=== PATIENT | female | born 1950 | race Caucasian/White ===

== ENCOUNTER 2016-12-15 19:06 | Emergency (ER) | payer MEDICARE, OTHER ==
[2016-12-15 19:21] VITALS: RESP 22
[2016-12-15] MEDS ORDERED: LORAZEPAM 2 MG/ML SOL IM ONE (19:23)
[2016-12-15] MEDS ORDERED: LORAZEPAM 2 MG/ML SOL ONE (19:24)
[2016-12-15] MEDS ORDERED: TDAP VACCINE 0.5 ML SUS IM ONE (19:39)
[2016-12-15] MEDS ORDERED: LIDOCAINE 1% W/EPI MPF 10 ML SOL INFIL ONE (19:40)
[2016-12-15] MEDS ORDERED: LIDOCAINE 1% W/EPI MPF 10 ML SOL ONE (19:41)
[2016-12-15] MEDS ORDERED: EPINEPHRINE HCL 0.1 MG/ML SOL IV PRN (20:30)
[2016-12-15] MEDS ORDERED: SODIUM CHLORIDE 0.9% 1000ML 1,000 ML IV ONE (20:35)
[2016-12-15] MEDS ORDERED: METOPROLOL TARTRATE 5 MG/5 ML SOL IV ONE ×2 (20:36→20:39)
[2016-12-15] MEDS ORDERED: ATROPINE 0.1 MG/ML SOL ONE (20:44)
[2016-12-15] MEDS ORDERED: LIDOCAINE HCL 2% (100 MG) CARP ONE (20:44)
[2016-12-15] MEDS ORDERED: ETOMIDATE 2 MG/ML SOL IV ONE ×2 (20:45→20:51)
[2016-12-15] MEDS ORDERED: ROCURONIUM BROMIDE 10 MG/ML SOL IV ONE ×2 (20:45→20:51)
[2016-12-15] MEDS ORDERED: SUCCINYLCHOLINE CHLORIDE 20 MG/ML SOL IV ONE (20:45)
[2016-12-15 21:02] LABS: ALBUMIN 3.4 gm/dl (3.4-5.0); ALT 48 IU/L (14-63); CALCIUM 8.9 mg/dl (8.5-10.1); GLOM FILT RATE 65 mL/min (>60); POTASSIUM 3.6 mMol/L (3.5-5.1); SODIUM 142 mMol/L (136-145)
[2016-12-15 21:03] LABS: BASOPHILS % (AUTO) 1 % (0-3); EOSINOPHILS % (AUTO) 3 % (0-9); HEMATOCRIT 38 % (35-47); MEAN CORPUSCULAR HGB CONC 33.9 gm/dl (32.0-36.0); MEAN CORPUSCULAR VOLUME 93 fL (81-99); MONOCYTES % (AUTO) 9.7 % (0-12); NEUTROPHILS % (AUTO) 27.6 % (37-80)
[2016-12-15] MEDS ORDERED: EPINEPHRINE 1:10,000 PREFILL 0.1 MG/ML SOL ONE (23:30)
[2016-12-16 03:08] VITALS: TEMP 98.6
[2016-12-16 03:39] VITALS: BP 95/47; PULSE 105; O2SAT 79
[2016-12-16] MEDS ORDERED: SODIUM CHLORIDE 0.9% FLUSH 10 ML SOL IV PRN (03:50)
== END 2016-12-15 21:14 | disposition short-term general hospital (02) | DRG 298 ==
LOC: ED 19:06
DX: I46.9 Cardiac arrest, cause unspecified (principal); S01.81XA Laceration without foreign body of other part of head, initial encounter; W01.198A Fall on same level from slipping, tripping and stumbling with subsequent striking against other object, initial encounter
CPT/HCPCS: 36415; 80053; 82550; 83880; 84484; 85025; 85610; 85730; 93005; 96365; 96372; 96374; 96375; 99291; G0168; J0330; J0461; J2001; J2060; L0130; A6402; A6446

== ENCOUNTER 2018-01-27 20:43 | Emergency (ER) | payer OTHER ==
[2018-01-27 20:43] VITALS: O2SAT 79
[2018-01-27 20:58] VITALS: BP 169/126; RESP 20; TEMP 98.6
[2018-01-27] MEDS ORDERED: TDAP VACCINE 0.5 ML SUS IM ONE ×2 (21:18→21:20)
== END 2018-01-27 21:25 | disposition home or self-care (01) | DRG 156 ==
LOC: ED 20:43
DX: S01.311A Laceration without foreign body of right ear, initial encounter (principal)
CPT/HCPCS: 90471; 90715; 99282

== ENCOUNTER 2018-02-05 19:51 | Observation (INO) | payer OTHER ==
[2018-02-05] MEDS ORDERED: LORAZEPAM 0.5 MG TAB ONE (20:15)
[2018-02-05] MEDS ORDERED: DIPHENHYDRAMINE 25 MG CAP ONE (20:16)
[2018-02-05] MEDS ORDERED: LORAZEPAM 0.5 MG TAB PO ONE (20:18)
[2018-02-05] MEDS ORDERED: DIPHENHYDRAMINE 25 MG CAP PO ONE (20:20)
[2018-02-05] MEDS ORDERED: HALOPERIDOL LACTATE 5 MG/ML SOL ONE (21:21)
[2018-02-05] MEDS ORDERED: HALOPERIDOL LACTATE 5 MG/ML SOL IM ONE (21:25)
[2018-02-05 23:27] LABS: BASOPHILS % (AUTO) 1 % (0-3); EOSINOPHILS % (AUTO) 1 % (0-9); HEMATOCRIT 33 % (35-47); HEMOGLOBIN 11.5 gm/dl (12.0-15.5); LYMPHOCYTES % (AUTO) 22.3 % (10-50); MEAN CORPUSCULAR HEMOGLOBIN 31.3 pg (27.0-32.0); MEAN CORPUSCULAR HGB CONC 35.2 gm/dl (32.0-36.0); MEAN CORPUSCULAR VOLUME 89 fL (81-99); MONOCYTES % (AUTO) 6.3 % (0-12); NEUTROPHILS % (AUTO) 69.6 % (37-80)
[2018-02-05 23:43] LABS: ALBUMIN 3.1 gm/dl (3.4-5.0); BILIRUBIN,TOTAL 0.3 mg/dl (0.2-1.0); CALCIUM 9.2 mg/dl (8.5-10.1); CARBON DIOXIDE 31.3 mEq/L (21-32); CREATININE 0.71 mg/dl (0.60-1.00); POTASSIUM 4.6 mMol/L (3.5-5.1); TOTAL PROTEIN 7.2 gm/dl (6.4-8.2)
[2018-02-06] MEDS ORDERED: LORAZEPAM 0.5 MG TAB PO PRN (00:29)
[2018-02-06] MEDS ORDERED: POLYETHYLENE GLYCOL 17 GM PO SCH (00:30)
[2018-02-06] MEDS: LEVOTHYROXINE SODIUM 50 MCG TAB PO SCH (06:39)
[2018-02-06] MEDS ORDERED: CHOLECALCIFEROL 1000 UNIT PO SCH (09:00)
[2018-02-06] MEDS ORDERED: CALCIUM 500 MG PO SCH (09:00)
[2018-02-06] MEDS ORDERED: LEVOTHYROXINE SODIUM 50 MCG TAB PO SCH (09:00)
[2018-02-06] MEDS: CALCIUM CARBONATE 500 MG TAB PO SCH ×2 (10:05→20:39)
[2018-02-06] MEDS: CHOLECALCIFEROL 1,000 IU TAB PO SCH (10:06)
[2018-02-06] MEDS: GABAPENTIN 100 MG CAP PO SCH ×2 (10:06→20:39)
[2018-02-06] MEDS: LORAZEPAM 0.5 MG TAB PO SCH (10:06)
[2018-02-06] MEDS: QUETIAPINE FUMARATE 25 MG TAB PO SCH ×2 (10:06→20:40)
[2018-02-06] MEDS: NITROFURANTOIN MACROCRYSTAL 50 MG PO SCH (10:14)
[2018-02-06] MEDS: FLUCONAZOLE 100 MG TAB PO SCH ×2 (10:15→20:40)
[2018-02-06] MEDS ORDERED: FAMOTIDINE 20 MG TAB PO SCH (21:00)
[2018-02-07] MEDS: LEVOTHYROXINE SODIUM 50 MCG TAB PO SCH (06:37)
[2018-02-07 07:42] VITALS: BP 102/68; O2SAT 93
[2018-02-07] MEDS ORDERED: POLYETHYLENE GLYCOL 17 GM/1 TBS PDS PO SCH (09:00)
[2018-02-07] MEDS: LORAZEPAM 0.5 MG TAB PO SCH (09:15)
[2018-02-07] MEDS: GABAPENTIN 100 MG CAP PO SCH (09:16)
[2018-02-07] MEDS: CALCIUM CARBONATE 500 MG TAB PO SCH (09:16)
[2018-02-07] MEDS: NITROFURANTOIN MACROCRYSTAL 50 MG PO SCH (09:16)
[2018-02-07] MEDS: CHOLECALCIFEROL 1,000 IU TAB PO SCH (09:17)
[2018-02-07] MEDS: QUETIAPINE FUMARATE 25 MG TAB PO SCH (09:17)
[2018-02-07 09:24] VITALS: PULSE 76; RESP 18; TEMP 97.9
== END 2018-02-07 10:10 | disposition home or self-care (01) | DRG 125 ==
LOC: ED 19:51 → ACUTE CARE 23:16
PROVIDERS: ADMIT Family Medicine; ATTEND Family Medicine
DX: S00.12XA Contusion of left eyelid and periocular area, initial encounter (principal); S09.90XA Unspecified injury of head, initial encounter; W19.XXXA Unspecified fall, initial encounter; F79 Unspecified intellectual disabilities
CPT/HCPCS: 36415; 80053; 85025; 85610; 96372; 99219; 99284; J1630; A9270-GY

== ENCOUNTER 2018-03-08 02:40 | Emergency (ER) | payer OTHER ==
[2018-03-08 02:40] VITALS: O2SAT 93
[2018-03-08] MEDS ORDERED: LORAZEPAM 2 MG/ML SOL ONE (02:50)
[2018-03-08] MEDS ORDERED: HALOPERIDOL LACTATE 5 MG/ML SOL IM ONE (03:05)
[2018-03-08] MEDS ORDERED: HALOPERIDOL LACTATE 5 MG/ML SOL ONE (03:06)
[2018-03-08] MEDS ORDERED: LORAZEPAM 2 MG/ML 1 MG in SODIUM CHLORIDE 20 ML 9 ML IV ONE (03:16)
[2018-03-08] MEDS ORDERED: LORAZEPAM 2 MG/ML SOL IV ONE (04:47)
[2018-03-08] MEDS ORDERED: SODIUM CHLORIDE 0.9% FLUSH 10 ML SOL IV PRN (05:13)
== END 2018-03-08 04:42 | disposition home or self-care (01) | DRG 605 ==
LOC: ED 02:40
DX: S00.03XA Contusion of scalp, initial encounter (principal)
CPT/HCPCS: 96372; 96374; 99283; J1630; J2060